=== PATIENT | female | born 1990 | race Caucasian/White ===

== ENCOUNTER → 2024-03-10 | Outpatient (CLI) | payer MEDICAID ==
[~2024-03-10] MED LIST: NO HOME MEDS
== END | disposition home or self-care (01) ==
LOC: RAD 08:09
PROVIDERS: ATTEND Registered Nurse
DX: R40.4 Transient alteration of awareness (principal); Z87.898 Personal history of other specified conditions
CPT/HCPCS: 95816

== ENCOUNTER 2024-12-24 12:01 | Outpatient (CLI) | payer MEDICAID | END 2024-12-24 23:59 | disposition home or self-care (01) | LOC: MRI02 12:01 | PROVIDERS: ATTEND Family Medicine | DX: G43.909 Migraine, unspecified, not intractable, without status migrainosus (principal) | CPT/HCPCS: 70551 ==